=== PATIENT | male | born 1950 | race Caucasian/White ===

== ENCOUNTER → 2018-11-23 | Outpatient (CLI) | payer MEDICARE, BC ==
[~2018-11-23] MED LIST: ACET500T33 PO; ASPI-630 PO; BYSTOLIC10 MG PO; BYSTOLIC2.5 MG PO; CHOL2000 PO; FLUT9.9S NS; HYDR-3164 PO; HYDR12.575 PO; MELO15TA23 PO; NAPR220T70 PO; OMEG1CAP2 PO; TRAM50TA PO; WARF-31 PO
[2018-11-23 09:09] LABS: BASO # 0.1 x10^3/uL (0.0-0.2); BASO % 1 % (0-3); EOS # 0.3 x10^3/uL (0.0-0.7); EOS % 4 % (0-3); HEMATOCRIT 46.5 % (39.0-53.0); HEMOGLOBIN 16.5 g/dL (13.0-17.5); LYMPH # 2.1 x10^3/uL (1.0-4.8); LYMPH % 29 % (24-48); MEAN CORPUSCULAR HEMOGLOBIN 32 pg (25-35); MEAN CORPUSCULAR HGB CONC 36 g/dL (31-37); MEAN CORPUSCULAR VOLUME 89 fL (79-100); MONO # 0.7 x10^3/uL (0.0-1.1); MONO % 10 % (0-9); NEUT # 4.1 x10^3uL (1.8-7.7); NEUT % 57 % (31-73); PLATELET COUNT 240 x10^3/uL (140-400); RED BLOOD COUNT 5.22 x10^6/uL (4.30-5.70); WHITE BLOOD COUNT 7.2 x10^3/uL (4.0-11.0)
[2018-11-23 09:21] LABS: ALBUMIN 3.5 g/dL (3.4-5.0); CALCIUM 9.3 mg/dL (8.5-10.1); GFR 74.5; POTASSIUM 4.1 mmol/L (3.5-5.1); PROTHROMBIN TIME PATIENT 13.6 SEC (11.7-14.0)
[2018-11-23 10:15] LABS: BILIRUBIN,URINE NEGATIVE (NEG); CLARITY,URINE CLEAR; COLOR,URINE YELLOW; NITRITE,URINE NEGATIVE (NEG); PH,URINE 5.5; PROTEIN,URINE NEGATIVE (NEG-TRACE); UROBILINOGEN,URINE 0.2 mg/dL (0.2 mg/dL)
[2018-11-23 11:03] LABS: BACTERIA,URINE 0 /HPF (0-FEW); RBC,URINE 0 /HPF (0-2); SQUAMOUS EPITHELIAL CELL,UR OCC /LPF
--- NOTE | 2018-11-23 12:15 | EKG ---
[facility] [address] [place] [address] Test Date: 2018-11-23 Test Time: 12:10:57 Pat Name: GLENNY RÍOS Department: Patient ID: [facility]-[id number] Room: Gender: M Manager Software: [facility] : 1950 Requested By: DIVINE BAUER Order Number: [id number] Reading MD: John Lopez Measurements Intervals [place] Rate: 48 P: 31 GA: 182 QRS: 31 QRSD: 90 T: 29 QT: 434 QTc: 388 Interpretive Statements SINUS BRADYCARDIA NO SPECIFIC ECG ABNORMALITIES RI6.01 Unconfirmed report No previous ECG available for comparison Electronically Signed On 11-25-2018 10:45:43 WRAPPER SHEETER by John Lopez
--- NOTE | 2018-11-23 13:40 | RAD ---
EXAM: Chest, 2 views. HISTORY: Hypertension. Preoperative evaluation. COMPARISON: None. FINDINGS: 2 views the chest are obtained. There is no infiltrate, pleural effusion or pneumothorax. The heart is normal in size. IMPRESSION: No acute pulmonary finding. Electronically signed by: Annamaria Bustamante MD (11/23/2018 1:36 PM) [place] [id number]
== END | disposition home or self-care (01) ==
LOC: SURGPAT 12:47
PROVIDERS: ATTEND Orthopaedic Surgery Sports Medicine
DX: Z01.818 Encounter for other preprocedural examination (principal); M16.11 Unilateral primary osteoarthritis, right hip; I10 Essential (primary) hypertension; Z88.8 Allergy status to other drugs, medicaments and biological substances; Z79.82 Long term (current) use of aspirin; Z79.899 Other long term (current) drug therapy; Z79.01 Long term (current) use of anticoagulants
CPT/HCPCS: 36415; 71046; 80048; 81001; 82040; 85025; 85610; 85651; 85730; 87641; 93005

== ENCOUNTER 2018-12-07 05:51 | Inpatient (IN) | payer MEDICARE, BC ==
[~2018-12-07] VITALS: Ht 182.9 cm; Wt 110.7 kg
[2018-12-07] VITALS (9 sets, daily range): BP systolic 128–149; BP diastolic 64–81
[~2018-12-07 05:51] MED LIST changes: -ACET500T33 PO; -HYDR-3164 PO; -MELO15TA23 PO; -TRAM50TA PO; -WARF-31 PO
[2018-12-07] MEDS ORDERED: HYDROcodone/APAP 7.5/325MG 1 TAB TABLET PO PRN (06:00)
[2018-12-07] MEDS ORDERED: TRANEXAMIC ACID 1,000 MG in IV NS 50ML -- 1ST BAG INJ ONE (06:00)
[2018-12-07] MEDS ORDERED: MELOXICAM 7.5 MG TABLET PO PRN (06:00)
[2018-12-07] MEDS ORDERED: TV=100ml MORPHINE 5 MG, KETOROLAC 30 MG, ROPIVacaine 0.5% PF 60 ML, EPINEPH... INT ART ONE ×5 (06:00)
[2018-12-07] MEDS ORDERED: ACET500T33 PO (06:52)
[2018-12-07] MEDS ORDERED: MELO15TA23 PO (06:52)
[2018-12-07] MEDS ORDERED: WARF-31 PO (07:00)
[2018-12-07] MEDS ORDERED: LIDOCAINE 1% PF 2 ML VIAL. ID PRN (07:00)
[2018-12-07] MEDS ORDERED: ONDANSETRON PF 4 MG/2 ML VIAL. IV PRN (07:00)
[2018-12-07] MEDS ORDERED: fentaNYL PF VIAL 100 MCG/2 ML VIAL IV PRN ×2 (07:00→07:15)
[2018-12-07] MEDS ORDERED: PROCHLORPERAZINE 10 MG/2 ML VIAL. IV PRN (07:00)
[2018-12-07] MEDS ORDERED: HYDROmorphone 2 MG/ML VIAL IV PRN (07:00)
[2018-12-07] MEDS ORDERED: IV RINGERS,LACTATED 1000ML 1,000 ML IV SCH (07:00)
[2018-12-07] MEDS ORDERED: ROCURONIUM 50 MG/5 ML VIAL. ONE (07:06)
[2018-12-07] MEDS ORDERED: MIDAZOLAM HCL/PF 2 MG/2 ML VIAL. ONE (07:06)
[2018-12-07] MEDS ORDERED: fentaNYL PF VIAL 100 MCG/2 ML VIAL ONE ×3 (07:06→09:36)
[2018-12-07] MEDS ORDERED: ONDANSETRON PF 4 MG/2 ML VIAL. ONE (07:06)
[2018-12-07] MEDS ORDERED: FAMOTIDINE 20 MG/2 ML VIAL ONE (07:06)
[2018-12-07] MEDS ORDERED: DEXAMETHASONE SOD PHOS 20 MG/5 ML VIAL. ONE (07:06)
[2018-12-07] MEDS ORDERED: PROPOFOL 20 ML IV ONE (07:06)
[2018-12-07] MEDS ORDERED: LIDOCAINE 2% PF 5 ML VIAL. ONE (07:06)
[2018-12-07] MEDS ORDERED: METOCLOPRAMIDE HCL 10 MG/2 ML VIAL. IV PRN (07:15)
[2018-12-07] MEDS ORDERED: oxyCODONE IR 5 MG TABLET PO PRN (07:15)
[2018-12-07] MEDS ORDERED: DEXTROSE 50% 25 GM / 50ML DISP.SYRIN. IV PRN (07:15)
[2018-12-07] MEDS ORDERED: 0.9 % SODIUM CHLORIDE 10 ML DISP.SYRIN. IV PRN (07:15)
[2018-12-07] MEDS ORDERED: PROCHLORPERAZINE 5 MG TABLET. PO PRN (07:15)
[2018-12-07] MEDS ORDERED: FLUTICASONE 50MCG/NASAL SPRAY 16GM BOTTLE. NS PRN (07:15)
[2018-12-07] MEDS ORDERED: ZOLPIDEM 5 MG TABLET. PO PRN (07:15)
[2018-12-07] MEDS ORDERED: diphenhydrAMINE 50 MG/ML VIAL IV PRN (07:15)
[2018-12-07] MEDS ORDERED: MORPHINE SULFATE 4 MG/ML VIAL. IV PRN (07:15)
[2018-12-07] MEDS ORDERED: CALCIUM CARBONATE 500 MG TAB.CHEW PO PRN (07:15)
[2018-12-07 07:26] LABS: PROTHROMBIN TIME PATIENT 13.8 SEC (11.7-14.0)
[2018-12-07] MEDS ORDERED: hydrALAZINE 20 MG/ML VIAL. ONE (07:52)
[2018-12-07] MEDS ORDERED: TRANEXAMIC ACID 1,000 MG in IV NS 50ML -- 2ND BAG INJ ONE (08:00)
[2018-12-07] MEDS ORDERED: GLYCOPYRROLATE 1 MG/5 ML VIAL. ONE (08:20)
[2018-12-07] MEDS ORDERED: NEOSTIGMINE 10 MG/10 ML VIAL. ONE (08:20)
[2018-12-07] MEDS ORDERED: SEVOFLURANE 61 TO 120 MINUTES. IH ONE (08:53)
[2018-12-07] MEDS: hydroCHLOROthiazide 12.5 MG CAPSULE PO SCH (09:00)
[2018-12-07] MEDS: SENNOSIDES/DOCUSATE 8.6/50MG TABLET. PO SCH (09:00)
[2018-12-07] MEDS: MULTIVITAMIN with MINERAL TABLET. PO SCH (09:00)
[2018-12-07] MEDS: CHOLECALCIFEROL (VITAMIN D3) 1,000 UNIT TABLET PO SCH (09:00)
[2018-12-07] MEDS: METOPROLOL TART IMMED RELEASE 50 MG TABLET. PO SCH ×2 (09:00→20:56)
--- NOTE | 2018-12-07 09:32 | PDOC4 ---
Operative Note Operative Note Date of procedure: 12/07/2018 Surgeon: Konstantin Kauffmant.: Thomas Williamson, ANDRE Preoperative diagnosis: Advanced right hip primary degenerative joint disease Postoperative diagnosis: Same Procedure performed: Right total hip arthroplasty Anesthesia: Gen. Findings: Advanced primary degenerative joint disease of right hip Blood loss: 400 mL Complications: None Components inserted: Edwards and nephew anthology size 7 standard offset femoral component, 40 mm Oxinium head, +8 sleeve, 58 mm outer diameter R3 acetabular shell with 20� posteriorly directed elevated liner Reason for procedure: Patient is very pleasant 68-year-old gentleman who had seen in my outpatient orthopedic surgery clinic. Clinical and radiographic evidence were consistent with the above preoperative diagnosis and after a failure of conservative therapies we had a discussion of the risks, benefits, and alternatives the above surgery and he wished to proceed. Description of procedure: Patient was greeted in the preoperative area by myself for the correct extremity was verified and marked. He was taken back to the operative suite and his antibiotics were started as he was brought back. Once in the operating room, he was transferred gently supine to the operating room table where he had successful induction of a general anesthetic. We then placed him into the lateral decubitus position with the right side up, padding all down pressure points and an axillary roll was also in place. He was secured to the bed with a seatbelt in our hip positioning device. I appreciated his leg lengths at this point. After this, the right lower extremity and hip region were prepped and draped in our usual sterile fashion including an Ioban Wysox. After this, I palpated and marked surface anatomy and joseph a line from my standard sterile lateral skin incision. Our standard preoperative timeout was conducted. I then incised skin with a scalpel and dissected down to the fascia with electrocautery, cauterizing bleeders as a were encountered. I used a Kat to sweep aside adherent subcutaneous tissue for better identification of the fascia and incised this in line with the skin incision, bluntly splitting the gluteus tyree posteriorly. I then placed myself retaining retractor and swept bursal tissue posteriorly. I took down the quadratus and piriformis, I take the piriformis for later repair. Identified the hip capsule and incised this in a T-type incision, taking ends of this as well. After this, I was able to dislocate the hip joint. I then palpated and marked with electrocautery reproducible areas at greater and lesser trochanters as well as center femoral head and made my leg measurements for length and offset. I then joseph a line 1 cm proximal to the lesser trochanter made my femoral neck cut, delivering the bony remnant from the operative field. I then placed my acetabular retractors, identified his transverse acetabular ligament. He had a large amount of osteophytes I took some of these down posteriorly and inferiorly as well. I then removed the labrum, some of it was still intact. After this, I began reaming and reamed down to the floor of the acetabulum, it should be noted I did remove the soft tissue from the floor of the acetabulum prior to beginning reaming. I then reamed sequentially up until I had encountered good punctate bleeding bony bed and then impacted my cup in a position after thoroughly irrigating the operative field. I referenced his sitka anatomy and the crossbar attachment. After this, I placed a screw into his posterior column. I then irrigated out the operative field again and impacted my cup in position with the elevation directed posteriorly. I then repositioned the leg and used a proximal femoral elevator. I then used a lyleie cutting osteotome followed by a canal finding reamer and a lateralizing reamer. After this I began broaching and broached up to the above size which gave a good fit and fill. I then trialed various head sizes and selected the above combination which gave the best range of motion, stability, and leg length. I felt like I had re-created his measurements as well. After this, I removed all trial components from the femur, thoroughly irrigated the operative field again and femoral canal and impacted my size [address]. I then re-trialed the head sizes and selected the +8. I then redislocated the hip, washed and dried the Rojo taper region and in fact and my Oxinium head and sleeve into position. The hip was then reduced. I tested his range of motion and impingement was happy with his motion, stability, and leg length. I then closed capsule after thoroughly irrigating the operative field again with simple interrupted #2 Ethibond. Piriformis was reapproximated through drill tunnels. I then injected my periarticular mixture. After this, I close fascia with running #2 Quill. Inverted interrupted 2-0 Vicryl in a multilayered fashion was used for subcutaneous tissue and running 4-0 Monocryl in a buried subcuticular fashion was used for skin. All counts correct �2 prior to wound closure. No complications. At the conclusion of surgery, the hip was cleansed and dried and our incisional wound vacuum was applied. The patient was laid supine and transferred gently supine to the hospital bed. He was taken to the PACU in a stable and extubated condition. Postoperative plan is to admit him to the joint center for DVT and antibiotic prophylaxis as well as to begin his rehabilitation. KONSTANTIN BAUER II, MD Dec 07, 2018 09:32
[2018-12-07] MEDS: MORPHINE SULFATE 4 MG/ML VIAL. IV PRN ×6 (09:36→10:33)
[2018-12-07] MEDS ORDERED: MORPHINE SULFATE 4 MG/ML VIAL. ONE (09:36)
[2018-12-07] MEDS: fentaNYL PF VIAL 100 MCG/2 ML VIAL IV PRN ×4 (09:38→10:26)
--- NOTE | 2018-12-07 10:40 | NUR ---
Admitted from PACU per bed alert/oriented, states discomfort level 6/10 in hip also c/o back discomfort, Ericka dressing clean, dry & intact to right with ice pack in place for comfort, bilateral NICOLAS hose & SCD, written information provided for hip precaution, call light within reach, spouse at bedside
--- NOTE | 2018-12-07 10:43 | RAD ---
PELVIS Clinical Indication: POST OP Comparison: None. Findings: There is right hip arthroplasty. The acetabular cup is positioned more laterally than expected. The arthroplasty component alignment is anatomic. There is no acute fracture. There is lateral subcutaneous air. Degenerative arthropathy of the left hip. Multiple phleboliths in the pelvis. IMPRESSION: Right hip arthroplasty. No acute fracture. Electronically signed by: Vinh Lui MD (12/07/2018 10:39 AM) [id number]
[2018-12-07] MEDS: ONDANSETRON PF 4 MG/2 ML VIAL. IV SCH ×2 (11:57→18:00)
[2018-12-07] MEDS: ONDANSETRON ODT 4 MG TAB.RAPDIS. PO SCH ×2 (11:58→18:00)
--- NOTE | 2018-12-07 11:58 | NUR ---
Zofran held no nausea or vomiting noted
[2018-12-07] MEDS ORDERED: WARFARIN 7.5 MG TABLET. PO ONE (16:00)
[2018-12-07] MEDS: FERROUS SULFATE 325 MG TABLET. PO SCH (16:49)
[2018-12-07] MEDS: IV NORMAL SALINE 1000ML BAG 1,000 ML IV SCH (18:57)
[2018-12-08 03:00] VITALS: BP 149/79
[2018-12-08] MEDS ORDERED: MAGNESIUM HYDROXIDE 2,400 MG/30 ML ORAL.SUSP. PO PRN (06:00)
[2018-12-08] MEDS: ONDANSETRON ODT 4 MG TAB.RAPDIS. PO SCH ×2 (06:00)
[2018-12-08] MEDS: ONDANSETRON PF 4 MG/2 ML VIAL. IV SCH ×2 (06:00)
[2018-12-08] MEDS: traMADol 50 MG TABLET PO SCH ×4 (06:19→23:54)
[2018-12-08] MEDS: IV NORMAL SALINE 1000ML BAG 1,000 ML IV SCH (06:20)
[2018-12-08 06:34] VITALS: BP 131/76
--- NOTE | 2018-12-08 06:49 | NUR ---
Ambulated in wahl earlier w/ SBA w/o difficulty. Ultram started. Ramila held - no N/V.
--- NOTE | 2018-12-08 07:17 | NUR ---
Outer dressing to right hip removed, Ericka dressing intact, educated dressing to remain in place until 2 week appointment but battery pack to be removed in 1 week, states discomfort level 1-01/03, ice pack in place, will continue to observe
[2018-12-08 07:19] LABS: HEMATOCRIT 37.1 % (39.0-53.0)
[2018-12-08 07:35] LABS: PROTHROMBIN TIME PATIENT 15.5 SEC (11.7-14.0)
[2018-12-08 08:16] VITALS: BP 130/66
[2018-12-08] MEDS: MULTIVITAMIN with MINERAL TABLET. PO SCH (08:18)
[2018-12-08] MEDS: CHOLECALCIFEROL (VITAMIN D3) 1,000 UNIT TABLET PO SCH (08:19)
[2018-12-08] MEDS: FERROUS SULFATE 325 MG TABLET. PO SCH ×2 (08:19→17:25)
[2018-12-08] MEDS: hydroCHLOROthiazide 12.5 MG CAPSULE PO SCH (08:19)
[2018-12-08] MEDS: ACETAMINOPHEN 500 MG TABLET PO SCH ×3 (08:19→20:47)
[2018-12-08] MEDS: METOPROLOL TART IMMED RELEASE 50 MG TABLET. PO SCH ×2 (08:19→20:48)
[2018-12-08] MEDS: SENNOSIDES/DOCUSATE 8.6/50MG TABLET. PO SCH (08:19)
--- NOTE | 2018-12-08 10:38 | DISCH ---
DISCHARGE WITH HOME HEALTH DISCHARGE INFORMATION: Discharge Date: Dec 09, 2018 Final Diagnosis: Advanced primary right hip degenerative joint disease, status post right total hip arthroplasty Condition on Discharge: Stable CODE STATUS: Code Status: Full HOME HEALTH: Face to Face: I certify this patient is under my care and that I, or a nurse practitioner or physician's blacksmith assistant working with me, had a face to face encounter that meets the physician face to face encounter requirements with this patient on []. Medical Complications: S/P Joint Replacement Long Term For: Other: (blood draws) Pt Meets Homebound Status: Poor coordination w/ amb., Limited distance walking POST DISCHARGE ORDERS: Activity Instructions for Disc: Activity as tolerated Weight Bearing Status after Di: As tolerated Wound/Incision Care: Ice to area for comfort, Keep wound/cast CDI, Do not change dressing FOLLOW-UP: Follow up with: Mary in 2 wks Warfarin Follow UP: per Pharmacy CERTIFICATION STATEMENT: Certification Statement: Certification Statement: Based on the above finding, I certify that this patient is confined to the home and needs intermittent mcc care, physical therapy and/or speech therapy, or continues to need occupational therapy.~ This patient is under my care, and I have initiated the establishment of the plan of care.~ This patient will be followed by myself or a community physician who will periodically review the plan of care. Home Meds Reported Medications Warfarin Sodium (WARFARIN SODIUM) 5 Mg Tablet, 5 MG PO DAILY for PROTOCOL, #30 TAB 12/07/18 Fluticasone Propionate (Flonase Allergy Relief) 9.9 Ml [place].susp, 2 SPRAYS NS PRN DAILY PRN for ALLERGIES, BOTTLE 11/23/18 [place]-3 Acid Ethyl Esters (LOVAZA) 1 Gm Capsule, 1 GM PO DAILY for HYPERLIDEMIA , CAP 11/19/18 Cholecalciferol (Vitamin D3) (VITAMIN D) 2,000 Unit Capsule, 2000 UNIT PO DAILY for SUPPLEMENT FOR LOW D LEVEL, CAP 11/19/18 Nebivolol Hcl (BYSTOLIC) 10 Mg Tablet, 10 MG PO DAILY for HYPERTENSION, TAB 11/19/18 Hydrochlorothiazide (HYDROCHLOROTHIAZIDE CAPSULE ) 12.5 Mg Capsule, 25 MG PO DAILY for HYPERTENSION, #30 CAP 5 Refills 08/04/18 Discontinued Reported Medications Meloxicam (MELOXICAM) 15 Mg Tablet, 1 TAB PO DAILY for PAIN, #30 TAB 2 Refills 12/07/18 Acetaminophen (TYLENOL EXTRA STRENGTH) 500 Mg Tablet, 500 MG PO ONCE for PAIN, TAB 12/07/18 Aspirin (ASPIRIN) 81 Mg Tab.chew, 81 MG PO DAILY for HEART HEALTH/BLOOD THINNER , TAB.CHEW 11/19/18 Naproxen Sodium (ALEVE) 220 Mg Tablet, 440 MG PO DAILY08 for HYPERTENSION, TAB 11/19/18 DIVINE BAUER II, MD Dec 08, 2018 10:38
--- NOTE | 2018-12-08 10:40 | PDOC ---
ORTHO PROGRESS NOTES Subjective Dave has been doing well, he has been up and walking a fair amount. His pain is tolerable. Vitals Vital Signs Date Time Temp Pulse Resp B/P (MAP) Pulse Ox O2 Delivery O2 Flow Rate FiO2 12/08/18 08:19 67 130/66 12/08/18 07:11 Room Air 12/08/18 06:34 98.1 16 95 98.1 12/07/18 09:50 10.0 Labs Laboratory Tests Test 12/07/18 06:40 12/08/18 06:50 12/08/18 06:57 Prothrombin Time 13.8 SEC (11.7-14.0) 15.5 SEC (11.7-14.0) Prothromb Time International Ratio 1.1 (0.8-1.1) 1.3 (0.8-1.1) Activated Partial Thromboplast Time 30 SEC (24-38) Hemoglobin 13.0 g/dL (13.0-17.5) Hematocrit 37.1 % (39.0-53.0) Mean Corpuscular Hemoglobin Concent 35 g/dL (31-37) Laboratory Tests Test 12/08/18 06:50 12/08/18 06:57 Prothrombin Time 15.5 SEC (11.7-14.0) Prothromb Time International Ratio 1.3 (0.8-1.1) Hemoglobin 13.0 g/dL (13.0-17.5) Hematocrit 37.1 % (39.0-53.0) Mean Corpuscular Hemoglobin Concent 35 g/dL (31-37) Notes He is awake and alert and in bed. Dressing is intact and dry. Normal motor and sensation is present in his right lower extremity Assessment and Plan He will continue PT and OT. I would anticipate discharge home tomorrow, possibly with home health for blood draws [facility], MD Dec 08, 2018 10:40
[2018-12-08] MEDS ORDERED: FLUTICASONE 50MCG/NASAL SPRAY 16GM BOTTLE. NS PRN (10:41)
[2018-12-08] MEDS ORDERED: ONDANSETRON PF 4 MG/2 ML VIAL. IV PRN (12:00)
[2018-12-08] MEDS ORDERED: ONDANSETRON ODT 4 MG TAB.RAPDIS. PO PRN (12:00)
--- NOTE | 2018-12-08 12:45 | NUR ---
Pharmacy Warfarin Dosing Note S:Pharmacy consulted to assist with anticoagulation therapy started 12/06/18 with target INR: 1.6 - 2.5 O:GLENNY RÍOS is a 68 year old M with [place] LABS: Last INR: 1.3 Last HGB: 13 Last HCT: 37.1 Last PLT: - Last dose of 7.5 mg given on 12/07/18 at 1650 Previous Regimen: n/a Vitamin K given: N Drug Interaction Changes: None Ongoing Drug Interactions: none A:INR of 1.3 is below desired range. Target range for this patient is: 1.6 - 2.5 P: Warfarin dose: 5 mg today Bridge Therapy: None Next INR due tomorrow Pharmacy anticoagulation service will continue to follow. Sherry Ogden RPH, 12/08/18 [id number]
[2018-12-08] MEDS ORDERED: WARFARIN 5 MG TABLET. PO ONE (16:00)
[2018-12-08] MEDS ORDERED: BISACODYL 10 MG SUPP.RECT. PR PRN (16:00)
[2018-12-08 17:36] VITALS: BP 132/73
[2018-12-08 23:00] VITALS: BP 142/78
[2018-12-09] MEDS: ACETAMINOPHEN 500 MG TABLET PO SCH ×3 (03:00→15:23)
[2018-12-09] MEDS: traMADol 50 MG TABLET PO SCH ×2 (06:15→12:05)
--- NOTE | 2018-12-09 06:25 | NUR ---
Awakened for VS. Ultram and Tylenol given per eMar schedule. States he's had some "cramps" in his leg. Anticipates dismissal today.
[2018-12-09 06:28] VITALS: BP 132/83
[2018-12-09 06:37] LABS: HEMATOCRIT 36.9 % (39.0-53.0); HEMOGLOBIN 12.9 g/dL (13.0-17.5)
[2018-12-09 07:12] LABS: PROTHROMBIN TIME PATIENT 16.6 SEC (11.7-14.0)
--- NOTE | 2018-12-09 07:21 | PDOC ---
ORTHO PROGRESS NOTES Subjective Patient states doing well today. Post-op Day: 2 Procedure R [place] Vitals Vital Signs Date Time Temp Pulse Resp B/P (MAP) Pulse Ox O2 Delivery O2 Flow Rate FiO2 12/09/18 07:14 Room Air 12/09/18 06:28 98.4 71 20 132/83 (99) 95 98.4 Labs Laboratory Tests Test 12/08/18 06:50 12/08/18 06:57 12/09/18 06:15 Prothrombin Time 15.5 SEC (11.7-14.0) 16.6 SEC (11.7-14.0) Prothromb Time International Ratio 1.3 (0.8-1.1) 1.4 (0.8-1.1) Hemoglobin 13.0 g/dL (13.0-17.5) 12.9 g/dL (13.0-17.5) Hematocrit 37.1 % (39.0-53.0) 36.9 % (39.0-53.0) Mean Corpuscular Hemoglobin Concent 35 g/dL (31-37) 35 g/dL (31-37) Laboratory Tests Test 12/09/18 06:15 Hemoglobin 12.9 g/dL (13.0-17.5) Hematocrit 36.9 % (39.0-53.0) Mean Corpuscular Hemoglobin Concent 35 g/dL (31-37) Prothrombin Time 16.6 SEC (11.7-14.0) Prothromb Time International Ratio 1.4 (0.8-1.1) Assessment and Plan POD#2 S/P R [place] dressing dry and intact motor and sensory intact distally calf soft and nontender continue PT MARIO DELUNA APRN Dec 09, 2018 07:21
[2018-12-09] MEDS: FERROUS SULFATE 325 MG TABLET. PO SCH (08:06)
[2018-12-09] MEDS: SENNOSIDES/DOCUSATE 8.6/50MG TABLET. PO SCH (08:06)
[2018-12-09] MEDS: MULTIVITAMIN with MINERAL TABLET. PO SCH (08:06)
[2018-12-09] MEDS: hydroCHLOROthiazide 12.5 MG CAPSULE PO SCH (08:06)
[2018-12-09] MEDS: CHOLECALCIFEROL (VITAMIN D3) 1,000 UNIT TABLET PO SCH (08:06)
[2018-12-09 08:07] VITALS: BP 132/80
[2018-12-09] MEDS: METOPROLOL TART IMMED RELEASE 50 MG TABLET. PO SCH (08:07)
--- NOTE | 2018-12-09 08:31 | PDOC3 ---
Discharge Summary Visit Information Date of Admission: Dec 07, 2018 Date of Discharge: Dec 09, 2018 Admitting Diagnosis: advanced right hip primary degenerative joint disease Brief Hospital Course Allergies Allergies Coded Allergies Type Severity Reaction Last Updated Verified adhesive Allergy Intermediate Rash 12/07/18 Yes bacitracin Allergy Intermediate 08/04/18 Yes hydrocortisone Allergy Intermediate 08/04/18 Yes neomycin Allergy Intermediate 08/04/18 Yes polymyxin B Allergy Intermediate 08/04/18 Yes Uncoded Allergies Type Severity Reaction Last Updated Verified steri strips Adverse Reaction Intermediate 12/07/18 Vital Signs Vital Signs Date Time Temp Pulse Resp B/P (MAP) Pulse Ox O2 Delivery O2 Flow Rate FiO2 12/09/18 08:07 84 132/80 12/09/18 07:18 Room Air 12/09/18 06:28 98.4 20 95 98.4 Lab Results Laboratory Tests Test 12/08/18 06:50 12/08/18 06:57 12/09/18 06:15 Prothrombin Time 15.5 SEC (11.7-14.0) 16.6 SEC (11.7-14.0) Prothromb Time International Ratio 1.3 (0.8-1.1) 1.4 (0.8-1.1) Hemoglobin 13.0 g/dL (13.0-17.5) 12.9 g/dL (13.0-17.5) Hematocrit 37.1 % (39.0-53.0) 36.9 % (39.0-53.0) Mean Corpuscular Hemoglobin Concent 35 g/dL (31-37) 35 g/dL (31-37) Laboratory Tests Test 12/09/18 06:15 Hemoglobin 12.9 g/dL (13.0-17.5) Hematocrit 36.9 % (39.0-53.0) Mean Corpuscular Hemoglobin Concent 35 g/dL (31-37) Prothrombin Time 16.6 SEC (11.7-14.0) Prothromb Time International Ratio 1.4 (0.8-1.1) Brief Hospital Course Mr. Doty is a 68 old male who presented to my outpatient orthopedic surgery clinic with complaints of severe and progressive pain that failed conservative therapies including injections. We had a discussion of the risks, benefits, alternatives to total hip arthroplasty and he elected to proceed. He tolerated surgery well cover well from anesthesia in the PACU. He was then taken to the [facility] for care and observation. He did receive PT, OT, DVT and antibiotic prophylaxis. He recovered well from surgery and remained hemodynamically stable and afebrile throughout the hospitalization. Pain was controlled on oral pain medicine at the time of discharge. Good progress was made with therapy throughout the hospitalization, and activities of daily living were accomplished by the patient. The incision was clean dry and intact and the operative extremity had normal motor and sensation. Discharge Information Follow Up: Weeks Disposition/Orders: D/C to Home Scheduled Cholecalciferol (Vitamin D3) (Vitamin D) 2,000 Unit Capsule, 2,000 UNIT PO DAILY for SUPPLEMENT FOR LOW D LEVEL, (Reported) Entered as Reported by: CHARLES AVILA on 11/19/18 102 Last Taken: Unknown Dose on 11/27/18 Last Action: Converted on 12/07/18713 by GRACE BAUER MD Hydrochlorothiazide (Hydrochlorothiazide Capsule ) 12.5 Mg Capsule, 25 MG PO DAILY for HYPERTENSION, #30 Ref 5 (Reported) Entered as Reported by: JOSHUA SALAZAR on 08/04/18 1319 Last Taken: Unknown Dose on 11/27/18 Last Action: Continued on 12/07/18713 by GRACE BAUER MD Nebivolol Hcl (Bystolic) 10 Mg Tablet, 10 MG PO DAILY for HYPERTENSION, ( Reported) Entered as Reported by: CHARLES AVILA on 11/19/18 1027 Last Taken: Unknown Dose on 12/07/18 0500 Last Action: Converted on 713 by GRACE BAUER MD [place]-3 Acid Ethyl Esters (Lovaza) 1 Gm Capsule, 1 GM PO DAILY for HYPERLIDEMIA, (Reported) Entered as Reported by: CHARLES AVILA on 11/19/18 1027 Last Taken: Unknown Dose on 11/27/18 Last Action: HELD on 12/07/18713 by GRACE BAUER MD Warfarin Sodium (Warfarin Sodium) 5 Mg Tablet, 5 MG PO DAILY for PROTOCOL, #30 ( Reported) Entered as Reported by: FIORELLA JOSUE on 12/07/18 0700 Last Taken: Unknown Dose on 12/06/18 1700 Last Action: HELD on 12/07/18713 by GRACE BAUER MD Scheduled PRN Fluticasone Propionate (Flonase Allergy Relief) 9.9 Ml [place].susp, 2 SPRAYS NS PRN DAILY PRN for ALLERGIES, (Reported) Entered as Reported by: CHARLES AVILA on 11/23/18 1553 Last Taken: Unknown Dose on 11/27/18 Last Action: Converted on 12/07/18713 by GRACE BAUER MD Discontinued Medications Acetaminophen (Tylenol Extra Strength) 500 Mg Tablet, 500 MG PO ONCE for PAIN, ( Reported) Entered as Reported by: FIORELLA JOSUE on 12/07/18651 Last Action: HELD on 12/07/18713 by GRACE BAUER MD Aspirin (Aspirin) 81 Mg Tab.chew, 81 MG PO DAILY for HEART HEALTH/BLOOD THINNER, (Reported) Entered as Reported by: CHARLES AVILA on 11/19/18 1027 Last Taken: Unknown Dose on 11/27/18 Last Action: HELD on 12/07/18713 by GRACE BAUER MD Meloxicam (Meloxicam) 15 Mg Tablet, 1 TAB PO DAILY for PAIN, #30 Ref 2 (Reported ) Entered as Reported by: FIORELLA JOSUE on 12/07/18651 Last Taken: Unknown Dose on 12/07/18 0500 Last Action: HELD on 12/07/18713 by GRACE BAUER MD Naproxen Sodium (Aleve) 220 Mg Tablet, 440 MG PO DAILY08 for HYPERTENSION, ( Reported) Entered as Reported by: CHARLES AVILA on 11/19/18 1027 Last Taken: Unknown Dose on 11/27/18 Last Action: HELD on 12/07/18713 by GRACE BAUER MD Patient Instructions Patient Instructions Patient is to be discharged home with outpatient physical therapy. Home health for blood draws. He can weight-bear as tolerated. Wound care and dressing instructions were given. His questions were answered. He will follow up with me in 2 weeks, sooner should a problem arise. DIVINE BAUER II, MD Dec 09, 2018 08:31
[2018-12-09] MEDS ORDERED: HYDR-3164 PO (08:46)
[2018-12-09] MEDS ORDERED: TRAM50TA PO (08:46)
--- NOTE | 2018-12-09 11:37 | NUR ---
Pharmacy Warfarin Dosing Note S:Pharmacy consulted to assist with anticoagulation therapy started 12/06/18 with target INR: 1.6 - 2.5 O:GLENNY RÍOS is a 68 year old M with [place]: Last INR: 1.4 Last HGB: 12.9 Last HCT: 36.9 Last PLT: - Last dose of 5 mg given on 12/08/18 at 1606 Previous Regimen: Vitamin K given: N Drug Interaction Changes: None Ongoing Drug Interactions: A:INR of 1.4 is below desired range. Target range for this patient is: 1.6 - 2.5 P: Warfarin dose: 5 mg Today at 1600 Bridge Therapy: None Next INR due Friday. Pharmacy anticoagulation service will continue to follow. Ed Anderson [facility], 12/09/18 1784
[2018-12-09] MEDS ORDERED: WARFARIN 5 MG TABLET. PO ONE (15:00)
--- NOTE | 2018-12-09 15:42 | NUR ---
Patient left the building around 1530 with his and all of his belongings. He was escorted out in a wheelchair. Discharge education was completed by this nurse, therapy, Dr Hernandez, RISA Guzman, and pharmacy. Detailed instructions given about how to take care of his BETINA dressing and how to take/monitor his coumadin. No concerns noted from the patient or his upon discharge.
--- NOTE | 2018-12-09 16:11 | PATHOLOGY ---
[facility] Accession Number: [id number] . 01 Material submitted: . RIGHT HIP BONE AND TISSUE . 01 Clinical history: . Right hip osteoarthritis . 02 Diagnosis: Femoral head and neck and separate segments of bone and soft tissue, right hip arthroplasty: - Advanced degenerative arthritis. . (JPM:mml; 12/09/2018) QL/12/09/2018 . 02 Electronically signed: . Alexis Seymour MD, Pathologist NPI- [id number] . 01 Gross description: . The specimen is received in formalin, labeled "Dave Peace, right hip bone and tissue", is a femoral head (5.0 x 5.0 x 4.7 cm) with attached femoral neck, (2.5 cm in length and 5.6 x 3.2 cm). The resection margin is composed of smooth, trabeculated bone. The femoral head shows an area of eburnation measuring 5.6 x 3.0 cm. The remaining articular surface is irregular. Multiple peripheral osteophytes are identified. The attached romo-mwuai-wbp, rubbery soft tissue is papillary and edematous. Sectioning of the femoral head shows thinning of the articular cartilage corresponding to the eburnation. The bone underlying articular cartilage is compact with the remaining trabeculated. Also received within the container are multiple irregular fragments of bone, osteophytes and soft tissue measuring 3.0 x 2.5 x 1.2 cm in aggregate. Facilities Supervisor tissue are submitted as follows after decalcification: A1. Femoral head and femoral neck margin inked black A2. Femoral head, attached soft tissue and separately received fragments (SWS; 12/07/2018) SHS/SHS . 02 Pathologist provided ICD-10: M16.11 . 02 CPT . 188753, [id number] Specimen Comment: A courtesy copy of this report has been sent to Specimen Comment: [phone], , . Specimen Comment: Report sent to , and Specimen Comment: A duplicate report has been generated due to demographic updates. Performed at: 01 [facility] [address], [place] [id number] MD Marito Basilio MD Phone: [phone] Performed at: 02 [facility] [address], [place] [id number] MD Alexis Seymour MD Phone: [phone]
--- NOTE | 2018-12-15 11:06 | PDOC1 ---
History and Physical Date of Admission Date of Admission 12/07/2017 Identification/Chief Complaint Chief Complaint Right hip pain Source Source: Patient History of Present Illness History of Present Illness Patient is a very pleasant 68-year-old Filipino I been following for his right hip pain. He is here today to undergo right total hip arthroplasty. Please see my outpatient consult notes for full details. Past Medical History Cardiovascular: HTN, Hyperlipidemia Endocrine: Diabetes Past Surgical History Past Surgical History: Tonsillectomy, Other (prostatectomy) Family History Family History: Heart Disease Social History Smoke: No ALCOHOL: rare Current Medications Current Medications Current Medications Medications (Trade) Dose Ordered Sig/Mitali Start Time Stop Time Status Last Admin Dose Admin Acetaminophen (Tylenol) 1,000 mg Q6H 12/08/18 09:00 12/09/18 15:45 DC 12/09/18 15:23 1,000 MG Acetaminophen/ Hydrocodone Bitart (Lortab 7.5/325) 2 tab 1X PREOP PRN 12/07/18 06:00 12/07/18 18:00 DC Bisacodyl (Dulcolax Supp) 10 mg 1X PRN PRN 12/08/18 16:00 12/09/18 15:45 DC Calcium Carbonate/ Glycine (Tums) 500 mg PRN QID PRN 12/07/18 07:15 12/09/18 15:45 DC Cefazolin Sodium/ Dextrose 50 ml @ 100 mls/hr Q6H 12/07/18 13:00 12/08/18 01:29 DC 12/08/18 01:22 100 MLS/HR Dexamethasone Sodium Phosphate (Decadron) 20 mg STK-MED ONCE 12/07/18 07:06 12/07/18 07:08 DC Dextrose (Dextrose 50%-Water Syringe) 12.5 gm PRN Q15MIN PRN 12/07/18 07:15 12/09/18 15:45 DC Diphenhydramine HCl (Benadryl) 25 mg PRN Q6HRS PRN 12/07/18 07:15 12/09/18 15:45 DC Famotidine (Pepcid Vial) 20 mg STK-MED ONCE 12/07/18 07:06 12/07/18 07:08 DC Fentanyl Citrate (Fentanyl 2ml Vial) 100 mcg STK-MED ONCE 12/07/18 09:36 12/07/18 09:38 DC Ferrous Sulfate (Feosol) 325 mg BIDWMEALS 12/07/18 17:00 12/09/18 15:45 DC 12/09/18 08:06 325 MG Fluticasone Propionate (Flonase) 2 spray PRN DAILY PRN 12/08/18 10:41 12/09/18 15:45 DC Glycopyrrolate (Robinul) 1 mg STK-MED ONCE 12/07/18 08:20 12/07/18 08:22 DC Hydralazine HCl (Apresoline Inj) 20 mg STK-MED ONCE 12/07/18 07:52 12/07/18 07:55 DC Hydrochlorothiazide (Microzide) 25 mg DAILY 12/07/18 09:00 12/09/18 15:45 DC 12/09/18 08:06 25 MG Hydromorphone HCl (Dilaudid) 0.5 mg PRN Q10MIN PRN 12/07/18 07:00 12/07/18 11:31 DC Lidocaine HCl (Lidocaine Pf 2% Vial) 5 ml STK-MED ONCE 12/07/18 07:06 12/07/18 07:08 DC Lidocaine HCl (Xylocaine-Mpf 1% 2ml Vial) 2 ml PRN 1X PRN 12/07/18 07:00 12/07/18 11:31 DC Magnesium Hydroxide (Milk Of Magnesia) 2,400 mg 1X PRN PRN 12/08/18 06:00 12/09/18 05:59 DC Meloxicam (Mobic) 15 mg 1X PREOP PRN 12/07/18 06:00 12/07/18 18:00 DC Metoclopramide HCl (Reglan Vial) 10 mg PRN Q4HRS PRN 12/07/18 07:15 12/09/18 15:45 DC Metoprolol Tartrate (Lopressor) 50 mg BID 12/07/18 09:00 12/09/18 15:45 DC 12/09/18 08:07 50 MG Midazolam HCl (Versed) 2 mg STK-MED ONCE 12/07/18 07:06 12/07/18 07:08 DC Morphine Sulfate (Morphine Sulfate) 4 mg STK-MED ONCE 12/07/18 09:36 12/07/18 09:38 DC Morphine Sulfate 5 mg/Ketorolac Tromethamine 30 mg/Ropivacaine 60 ml/Epinephrine HCl 0.5 mg/Sodium Chloride 100 ml @ 100 mls/hr 1X PERIOP ONCE 12/07/18 06:00 12/07/18 06:59 DC 12/07/18 07:48 Multivitamins (Thera M Plus) 1 tab DAILY 12/07/18 09:00 12/09/18 15:45 DC 12/09/18 08:06 1 TAB Neostigmine Methylsulfate (Bloxiverz) 10 mg STK-MED ONCE 12/07/18 08:20 12/07/18 08:22 DC Ondansetron HCl (Zofran Odt) 4 mg PRN Q6HRS PRN 12/08/18 12:00 12/09/18 15:45 DC Ondansetron HCl (Zofran) 4 mg PRN Q6HRS PRN 12/08/18 12:00 12/09/18 15:45 DC Oxycodone HCl (Roxicodone) 5 mg PRN Q4HRS PRN 12/07/18 07:15 12/09/18 15:45 DC 12/08/18 03:02 5 MG Prochlorperazine Edisylate (Compazine) 5 mg PACU PRN PRN 12/07/18 07:00 12/07/18 11:31 DC Prochlorperazine Maleate (Compazine) 10 mg PRN Q4HRS PRN 12/07/18 07:15 12/09/18 15:45 DC Propofol 20 ml @ As Directed STK-MED ONCE 12/07/18 07:06 12/07/18 07:08 DC Ringer's Solution 1,000 ml @ 30 mls/hr Q24H 12/07/18 07:00 12/07/18 11:31 DC Rocuronium [place] (Zemuron) 50 mg STK-MED ONCE 12/07/18 07:06 12/07/18 07:08 DC Senna/Docusate Sodium (Senna Plus) 1 tab DAILY 12/07/18 09:00 12/09/18 15:45 DC 12/09/18 08:06 1 TAB Sevoflurane (Ultane) 60 ml STK-MED ONCE 12/07/18 08:53 12/07/18 08:55 DC Sodium Chloride (Normal Saline Flush) 10 ml QSHIFT PRN 12/07/18 07:15 12/09/18 15:45 DC Tramadol HCl (Ultram) 50 mg Q6H 12/08/18 06:00 12/09/18 15:45 DC 12/09/18 12:05 50 MG Tranexamic Acid 1000 mg/Sodium Chloride 60 ml @ 60 mls/hr 1X PERIOP ONCE 12/07/18 08:00 12/07/18 08:59 DC 12/07/18 08:52 60 MLS/HR Vitamin D (Vitamin D3) 2,000 unit DAILY 12/07/18 09:00 12/09/18 15:45 DC 12/09/18 08:06 2,000 UNIT Warfarin Sodium (Coumadin Per Pharmacy) 1 each PRN DAILY PRN 12/07/18 07:15 12/09/18 15:45 DC 12/09/18 11:35 1 EACH Warfarin Sodium (Coumadin) 5 mg 1X WARF ONCE 12/09/18 15:00 12/09/18 15:17 DC 12/09/18 15:23 5 MG Zolpidem Tartrate (Ambien) 5 mg PRN QHS PRN 12/07/18 07:15 12/09/18 15:45 DC Allergies Allergies Allergies Coded Allergies Type Severity Reaction Last Updated Verified adhesive Allergy Intermediate Rash 12/07/18 Yes bacitracin Allergy Intermediate 08/04/18 Yes hydrocortisone Allergy Intermediate 08/04/18 Yes neomycin Allergy Intermediate 08/04/18 Yes polymyxin B Allergy Intermediate 08/04/18 Yes Uncoded Allergies Type Severity Reaction Last Updated Verified steri strips Adverse Reaction Intermediate 12/07/18 ROS Review of System CONSTITUTIONAL: No fever or chills EYES: No recent changes SKIN: No rash or itching CARDIOVASCULAR: No chest pain, syncope, palpitations, or edema RESPIRATORY: No SOB or cough GASTROINTESTINAL: No nausea, vomiting or abdominal pain NEUROLOGICAL: No headaches or weakness ENDOCRINE: No cold or heat intolerance GENITOURINARY: No urgency or frequency of urination MUSCULOSKELETAL: No back pain or joint pain LYMPHATICS: No enlarged lymph nodes PSYCHIATRIC: No anxiety or depression Physical Exam Physical Exam GEN.: No apparent distress. Alert and oriented. HEENT: Head is normocephalic, atraumatic NECK: Supple. LUNGS: Clear to auscultation. HEART: RRR, Peripheral pulses intact ABDOMEN: Soft, nontender. Positive bowel sounds. EXTREMITIES: Without any cyanosis. NEUROLOGIC: Normal speech, normal tone PSYCHIATRIC: Normal affect, normal mood. SKIN: No ulcerations VTE Prophylaxis Ordered VTE Prophylaxis Devices: Yes VTE Pharmacological Prophylaxi: Yes Assessment/Plan Assessment/Plan We will plan on admitting him for recovery after his total joint replacement. DIVINE BAUER II, MD Dec 15, 2018 11:06
== END 2018-12-09 15:45 | disposition home or self-care (01) | DRG 470 ==
LOC: OPSVCIP 05:51 → 4 SOUTHEST 10:40
PROVIDERS: ADMIT Orthopaedic Surgery Sports Medicine; ATTEND Orthopaedic Surgery Sports Medicine
PROC: 0SR906Z Replacement of Right Hip Joint with Oxidized Zirconium on Polyethylene Synthetic Substitute, Open Approach (ICD-10-PCS; principal; 2018-12-07 07:30)
DX: M16.11 Unilateral primary osteoarthritis, right hip (principal); I10 Essential (primary) hypertension; E78.5 Hyperlipidemia, unspecified; M85.80 Other specified disorders of bone density and structure, unspecified site; Z88.1 Allergy status to other antibiotic agents; Z88.8 Allergy status to other drugs, medicaments and biological substances; Z79.899 Other long term (current) drug therapy
CPT/HCPCS: 36415; 72170; 85014; 85018; 85610; 85730; 86850; 86900; 86901; 88304; 88311; A7015; C1713; J0171; J0360; J0696; J1100; J1885; J2001; J2250; J2270; J2405; J2704; J2710; J2795; J3010; J3490; J7030; J7120; Q0162; 97116; 97150; 97530; 97535; G0378